=== PATIENT | male | born 1980 | race African-American/Black ===

== ENCOUNTER 2017-03-07 10:14 | Emergency (ER) | payer OTHER ==
[~2017-03-07 10:14] MED LIST: AUGMENTIN PO; BACTRIM DS TABL1 TA1; BACTRIM DS TABL1 TA1 DOB; BACTRIM DS TABL1 TA1 PO; KEFLEX500 MG; KEFLEX500 MG PO; LORTAB 5/500 TA1 TA1 PO; NO MEDICATIONS; VICODIN 5/500 T1 TAB PO
== END 2017-03-07 11:42 | disposition home or self-care (01) ==
LOC: CED 10:14
DX: Z53.21 Procedure and treatment not carried out due to patient leaving prior to being seen by health care provider (principal)

== ENCOUNTER 2017-03-18 23:50 | Emergency (ER) | payer OTHER | END 2017-03-19 00:45 | disposition left against medical advice (07) | LOC: CED 23:50 | DX: Z53.21 Procedure and treatment not carried out due to patient leaving prior to being seen by health care provider (principal) ==

== ENCOUNTER 2017-03-23 06:50 | Emergency (ER) | payer OTHER | END 2017-03-23 08:30 | disposition home or self-care (01) | LOC: CED 06:50 | DX: K64.4 Residual hemorrhoidal skin tags (principal); I10 Essential (primary) hypertension; F31.9 Bipolar disorder, unspecified | CPT/HCPCS: 99283 ==